=== PATIENT | female | born 1960 | race Caucasian/White ===

== ENCOUNTER 2017-01-30 11:02 | Day surgery (SDC) | payer OTHER ==
[~2017-01-30] VITALS: Ht 160 cm; Wt 119.0 kg
[2017-01-30] VITALS (10 sets, daily range): BP systolic 104–133; BP diastolic 67–83; PULSE 58–67; RESP 13–20; Ht 160 cm; Wt 119.0 kg
[~2017-01-30 11:02] MED LIST: AMOX1TAB67 PO; BACITUD TOP; BACTDS PO; FURO40TA4 PO; HYDR-762 PO; IBUP-1542 PO; METO25TA4 PO; SPIR25TA PO
[2017-01-30] MEDS ORDERED: METO25TA7 PO (11:25)
[2017-01-30] MEDS ORDERED: GLIM2TAB PO (11:31)
[2017-01-30] MEDS ORDERED: FURO40TA4 PO (11:31)
[2017-01-30] MEDS ORDERED: METF1000 PO (11:32)
[2017-01-30] MEDS ORDERED: SPIR25TA PO (11:32)
[2017-01-30] MEDS ORDERED: IODIXANOL LOCM 100 ML BTL ONE (13:31)
[2017-01-30] MEDS ORDERED: LIDOCAINE 1% (MDV) 20 ML INJ ONE (13:31)
[2017-01-30] MEDS ORDERED: MIDAZOLAM 1 MG/ML 2 ML INJ ONE (13:32)
[2017-01-30] MEDS ORDERED: FENTAnyl 50 MCG/ML VIAL ONE (13:32)
--- NOTE | 2017-01-30 16:09 | OPR ---
Date/Time of Note Date/Time of Note DATE: 01/30/17 TIME: 15:59 Operative Report Free Text/Dictation No assist no anesthesiologist Procedure Date: Jan 30, 2017 Preoperative Diagnosis abnormal stress test and cp Postoperative Diagnosis same Operation Performed Left heart cath Surgeon: CLINT CLEEMNS MD Anesthesia Type: other (local sedation ) Estimated Blood Loss: 0 - 10 ml's Transfusion Required: no Specimen: none Grafts/Implants: none Complications: no Pt Condition Post Procedure: stable Disposition: PACU Indications same as pre op diagnosis Operative\Procedure Findings normal coronaries and normal ef at 55% Procedure Description Procedure description: Left heart catheterization Procedure: 1. Left heart catheterization 2. Selective right coronary angiography 3. Selective left coronary angiography 4. Selective left ventriculogram 5. Local sedation 6. Fluoroscopy 7. Fluoroscopic use noted to guide needle placement to the vessel 8. Catheter placement into the right femoral artery 9. Angio-Seal deployment after right femoral artery angiography After informed consent was obtained by the patient the patient was brought to the cardiac catheterization laboratory where the patient's right and left groin were prepped and draped in the usual sterile fashion. Following this 1% lidocaine was used in order to infiltrate at the right groin, following this utilizing a micropuncture needle, catheterization and entry into the right femoral artery was performed without any complications. Following this, the patient received a 5 Nepali JL4 and JR4 catheter into the coronary artery in order to perform the catheterization. Following this a left ventriculogram was also performed utilizing the JR4 catheter Findings: Left main coronary artery is patent The right coronary artery is patent and large and dominant The left coronary artery, specifically the LAD as well as the circumflex is patent with no significant vascular blockages, less than 5% blockages in all the vessels. Left ventriculogram was performed in the SANTILLAN direction, and the patient has an ejection fraction approximately 55% Impression 1. no significant coronary artery disease discovered 2. Patient will require medical therapy and follow-up with me in 2 weeks. 3. The patient had Angio-Seal deployment in the right femoral artery. 4. No complications occurred. MD SARATH Burton LEO MD Jan 30, 2017 16:09
[2017-01-30] MEDS ORDERED: ACETAMINOPHEN 325 MG TAB PO PRN (16:30)
== END 2017-01-30 19:05 | disposition home or self-care (01) ==
LOC: SDS 11:02
PROVIDERS: ATTEND Internal Medicine
DX: R07.9 Chest pain, unspecified (principal); R94.39 Abnormal result of other cardiovascular function study; I10 Essential (primary) hypertension; E11.9 Type 2 diabetes mellitus without complications
CPT/HCPCS: 82962; 93458; C1760; C1769; C1887; C1894; J1644; J2250; J3010; Q9967; Z7610